=== PATIENT | female | born 2000 | race Caucasian/White ===

== ENCOUNTER 2018-03-28 18:47 | Emergency (ER) | payer MEDICAID ==
[2018-03-28] MEDS ORDERED: Triamcinolone Acetonide 0.1% Oint 15 GM Tube TOP ONE (18:48)
[2018-03-28 18:55] VITALS: BP 122/83
--- NOTE | 2018-03-28 19:30 | EDM.PDOC ---
ED HPI GENERAL MEDICAL PROBLEM - General Chief Complaint: Allergic Reaction Stated Complaint: ALLERGY AROUND MOUTH Time Seen by Provider: 03/28/18 19:20 Source of Information: Reports: Patient History Limitations: Reports: No Limitations - History of Present Illness INITIAL COMMENTS - FREE TEXT/NARRATIVE: Dry itching around eyes , now spreading to cheeks and around mouth. Hx eczema limited to hands. Tried cream for hands to face and burned. Washed off. OTC moisturizer with no improvement Face Pain Score (Numeric/FACES): 5 - Related Data Allergies Allergy/AdvReac Type Severity Reaction Status Date / Time No Known Allergies Allergy Verified 03/28/18 18:55 Home Meds: Home Meds . [No Known Home Meds] 04/02/16 [History] Past Medical History - Past Health History Medical/Surgical History: Denies Medical/Surgical History Psychiatric History: Reports: Anxiety, Panic Attack Dermatologic History: Reports: Eczema Social & Family History - Family History Family Medical History: Noncontributory - Tobacco Use Smoking Status *Q: Never Smoker Second Hand Smoke Exposure: No - Caffeine Use Caffeine Use: Reports: Soda - Recreational Drug Use Recreational Drug Use: No - Living Situation & Occupation Living situation: Reports: with Family Occupation: Student ED ROS ALLERGIC REACTION - Review of Systems Review Of Systems: ROS reveals no pertinent complaints other than HPI. ED EXAM GENERAL NO PERIP PULSE - Physical Exam Exam: See Below Exam Limited By: No Limitations General Appearance: Alert, No Apparent Distress Eye Exam: Bilateral Eye: EOMI Ears: Normal External Exam Nose: Normal Inspection Throat/Mouth: Normal Inspection, Normal Oropharynx Head: Atraumatic, Normocephalic Neck: Normal Inspection Respiratory/Chest: No Respiratory Distress, Lungs Clear Cardiovascular: Normal Peripheral Pulses, Regular Rate, Rhythm Extremities: Normal Inspection Neurological: Alert, Oriented, Normal Cognition Psychiatric: Normal Affect Skin Exam: Warm, Dry, Intact, Rash (red scally rash to eyelids around lower eyes sides of nose left lower neck. ) Course - Vital Signs Last Recorded V/S: Last Vital Signs Temp 98.9 F 03/28/18 18:51 Pulse 86 03/28/18 18:51 Resp 18 03/28/18 18:51 BP 122/83 03/28/18 18:51 Pulse Ox 100 03/28/18 18:51 Departure - Departure Time of Disposition: 19:24 Disposition: Home, Self-Care 01 Condition: Good Clinical Impression: Dermatitis - Discharge Information Instructions: Atopic Dermatitis Additional Instructions: Triamcinolone 0.1% ointment, apply thin layer to affected are 2x daily as needed gentamycin opth ointment to lids 2x daily x 5 days cetaphil lotion or similar without perfumes or alcohol in base as needed no makeup around eyes until resolved clinic follow up if not improving in 48 hours
[2018-03-28] MEDS ORDERED: Triamcinolone Acetonide 0.1% Oint 15 GM Tube ONE (19:34)
== END 2018-03-28 19:40 | disposition home or self-care (01) ==
LOC: DL.ED 18:47
DX: L30.9 Dermatitis, unspecified (principal)
CPT/HCPCS: 99282; A9270-GY

== ENCOUNTER 2022-06-17 01:57 | Emergency (ER) | payer BC, MEDICAID ==
[2022-06-17] MEDS ORDERED: Ondansetron 4 MG Tab.DIS PO ONE ×2 (01:58→02:06)
[2022-06-17 02:54] VITALS: BP 135/99; PULSE 102
[2022-06-17] MEDS ORDERED: Ondansetron 4 MG Tab.DIS ONE (02:58)
== END 2022-06-17 03:06 | disposition home or self-care (01) ==
LOC: DL.ED 01:57
DX: R11.2 Nausea with vomiting, unspecified (principal)
CPT/HCPCS: 99283; A9270

== ENCOUNTER 2024-10-28 13:49 | Inpatient (IN) | payer MEDICAID ==
[~2024-10-28 13:49] MED LIST: Bupivacaine 0.25% 10 ML SDV NERVRT ONE; Ketorolac 30 MG/ML SDV IVPUSH ONE; Ondansetron 4 MG/2 ML SDV IV ONE; Ropivacaine 100 ML EPIDUR ONE; fentaNYL 100 MCG/2 ML SDV EPIDUR ONE
[2024-10-28] MEDS ORDERED: Carboprost Tromethamine 250 MCG/1 ML Amp IM PRN (14:17)
[2024-10-28] MEDS ORDERED: Methylergonovine 0.2 MG/1 ML Amp IM PRN (14:17)
[2024-10-28] MEDS ORDERED: Sodium Chloride 0.9% 10 ML Syringe FLUSH PRN (14:17)
[2024-10-28] MEDS ORDERED: Nalbuphine HCl 10 MG/ 1ML Amp IM PRN (14:17)
[2024-10-28] MEDS ORDERED: Acetaminophen 325 MG Tab PO PRN (14:17)
[2024-10-28] MEDS ORDERED: Tranexamic Acid 1,000 MG in Sodium Chloride 0.9% 100 ML IV PRN (14:17)
[2024-10-28] MEDS ORDERED: Lactated Ringers 1,000 ML IV SCH (14:30)
[2024-10-28] MEDS: Misoprostol 50 MCG (1/2 of 100 MCG) Tab PO SCH (15:19)
[2024-10-28] MEDS: Misoprostol 25 MCG (1/4 of 100 MCG) Tab PO PRN (19:25)
[2024-10-28] MEDS: hydrOXYzine HCl 25 MG Tab PO PRN (23:43)
[2024-10-29] MEDS: fentaNYL 100 MCG/2 ML SDV IVPUSH PRN (05:09)
[2024-10-29] MEDS: Ondansetron 4 MG/2 ML SDV IVPUSH PRN (06:25)
[2024-10-29] MEDS: Lactated Ringers 1,000 ML IV ONE (06:55)
[2024-10-29] MEDS ORDERED: Bupivacaine 0.25% 10 ML SDV ONE (07:20)
[2024-10-29] MEDS ORDERED: ePHEDrine 50 MG/ML SDV IVPUSH PRN (07:45)
[2024-10-29] MEDS ORDERED: Phenylephrine HCl In 0.9% NaCl 1 MG/10 ML Syringe IVPUSH PRN (07:45)
[2024-10-29] MEDS ORDERED: Ropivacaine 200 MG in Premix Bag 1 BAG EPIDUR SCH (07:45)
[2024-10-29] MEDS: Oxytocin/Normal Saline 30 UNIT/500 ML BAG IV SCH (08:29)
[2024-10-29] MEDS ORDERED: Carboprost Tromethamine 250 MCG/1 ML Amp IM PRN (12:39)
[2024-10-29] MEDS ORDERED: Tranexamic Acid 1,000 MG in Sodium Chloride 0.9% 100 ML IV PRN (12:39)
[2024-10-29] MEDS ORDERED: Simethicone 80 MG Tab.Chew PO PRN (12:39)
[2024-10-29] MEDS ORDERED: Misoprostol 100 MCG Tab RECTAL PRN (12:39)
[2024-10-29] MEDS ORDERED: Acetaminophen 325 MG Tab PO PRN (12:39)
[2024-10-29] MEDS ORDERED: Oxytocin 10 Units/1 ML SDV IM PRN (12:39)
[2024-10-29] MEDS ORDERED: Sodium Chloride 0.9% 10 ML Syringe FLUSH PRN (12:39)
[2024-10-29] MEDS: Ibuprofen 800 MG Tab PO SCH (13:55)
[2024-10-29] MEDS: Witch Hazel Medicated Pads 100/Jar TOP PRN (13:56)
[2024-10-29] MEDS: Hydrocortisone 2.5% Crm 30 GM Tube TOP PRN (13:56)
[2024-10-29] MEDS: Benzocaine/Menthol 20%-0.5% Spray 78 GM Cannister TOP PRN (13:56)
[2024-10-29] MEDS: Lidocaine 1% 30 ML SDV INJECT ONE (14:12)
[2024-10-29] MEDS: Docusate Sodium 100 MG Cap PO PRN (20:47)
[2024-10-30] MEDS: Ferrous Sulfate 325 MG Tab PO SCH (08:06)
[2024-10-30] MEDS: Prenatal Multivitamin with Calcium/Folic Acid/Iron Tab PO SCH (08:06)
[2024-10-31] MEDS: Measles, Mumps & Rubella Vaccine 0.5 ML SDV SUBCUT ONE (08:40)
[2024-10-31 11:41] VITALS: BP 135/78; PULSE 80
== END 2024-10-31 11:51 | disposition home or self-care (01) | DRG 807 ==
LOC: DL.OBCHECK 13:49 → DL.OB 14:17 → OBSVTOIN 10-29 11:50
PROVIDERS: ADMIT Family Medicine; ATTEND Family Medicine
PROC: 10E0XZZ Delivery of Products of Conception, External Approach (ICD-10-PCS; principal; 2024-10-29)
PROC: 0UQMXZZ Repair Vulva, External Approach (ICD-10-PCS; 2024-10-29)
PROC: 3E0R3BZ Introduction of Anesthetic Agent into Spinal Canal, Percutaneous Approach (ICD-10-PCS; 2024-10-29)
PROC: 00HU33Z Insertion of Infusion Device into Spinal Canal, Percutaneous Approach (ICD-10-PCS; 2024-10-29)
DX: O42.02 Full-term premature rupture of membranes, onset of labor within 24 hours of rupture (principal); Z37.0 Single live birth; O13.4 Gestational [pregnancy-induced] hypertension without significant proteinuria, complicating childbirth; O43.123 Velamentous insertion of umbilical cord, third trimester; O99.02 Anemia complicating childbirth; Z3A.37 37 weeks gestation of pregnancy; F43.10 Post-traumatic stress disorder, unspecified; O99.344 Other mental disorders complicating childbirth; O70.0 First degree perineal laceration during delivery
CPT/HCPCS: 51702; 59025; 59409; 90471; 90707; A9270-GY; J0665; J1885; J2405; J2590; J2795; J3010; J7120